=== PATIENT | female | born 1945 | race Caucasian/White ===

== ENCOUNTER 2018-02-27 11:15 | Emergency (ER) | payer OTHER ==
[~2018-02-27] VITALS: Ht 165.1 cm; Wt 72.6 kg
[~2018-02-27 11:15] MED LIST: PROAIR HFA8.5 GM IH; TUSSIONEX PENNKI5 ML PO; ZITHROMAX500 MG PO
[2018-02-27] MEDS ORDERED: RITALIN20 MG (11:33)
== END 2018-02-27 19:49 | disposition home or self-care (01) ==
LOC: ER 11:15
DX: K57.30 Diverticulosis of large intestine without perforation or abscess without bleeding (principal)

== ENCOUNTER 2018-03-20 16:59 | Emergency (ER) | payer OTHER ==
[~2018-03-20] VITALS: Ht 157.5 cm; Wt 70.3 kg
[~2018-03-20 16:59] MED LIST changes: +RITALIN20 MG
[2018-03-20] MEDS ORDERED: DIAZEPAM10 MG PO (19:28)
[2018-03-20] MEDS ORDERED: SKELAXIN800 MG PO (19:28)
== END 2018-03-20 20:07 | disposition home or self-care (01) ==
LOC: ER 16:59
DX: M54.89 Other dorsalgia (principal)

== ENCOUNTER 2018-03-30 18:23 | Outpatient (CLI) | payer OTHER ==
[~2018-03-30 18:23] MED LIST changes: +DIAZEPAM10 MG PO; +SKELAXIN800 MG PO
== END 2018-03-30 22:00 | disposition home or self-care (01) ==
LOC: RAD 18:23
DX: M47.896 Other spondylosis, lumbar region (principal)

== ENCOUNTER 2019-07-30 14:11 | Emergency (ER) | payer OTHER ==
[~2019-07-30] VITALS: Ht 157.5 cm; Wt 74.8 kg
[2019-07-30] MEDS ORDERED: RITALIN20 MG PO ×2 (14:28→14:29)
[2019-07-30] MEDS ORDERED: LIALDA1.2 GM PO (14:29)
[2019-07-30] MEDS ORDERED: ZYRTEC10 M3 PO (14:30)
[2019-07-30] MEDS ORDERED: PROAIR HFA8.5 GM IH ×2 (14:30→16:14)
== END 2019-07-30 16:17 | disposition home or self-care (01) ==
LOC: ER 14:11
DX: R05 Cough (principal)

== ENCOUNTER 2020-10-17 00:10 | Inpatient (IN) | payer OTHER ==
[~2020-10-17] VITALS: Ht 160 cm; Wt 73.5 kg
[~2020-10-17 00:10] MED LIST changes: +LIALDA1.2 GM PO; +RITALIN20 MG PO; +ZYRTEC10 M3 PO
[2020-10-17] MEDS ORDERED: VOLTAREN 50 MG (00:39)
[2020-10-17] MEDS ORDERED: DICLOFENAC SODI50 MG (16:22)
== END 2020-10-24 20:26 | disposition expired | DRG 64 ==
LOC: ER 00:10 → SEC-K 11:32 → MEDJ 11:32 → MEDI 10-20 22:12 → ICU 10-21 03:52
PROVIDERS: ADMIT Internal Medicine; ATTEND Internal Medicine
PROC: BW38ZZZ Magnetic Resonance Imaging (MRI) of Head (ICD-10-PCS; 2020-10-17)
PROC: B33RZZZ Magnetic Resonance Imaging (MRI) of Intracranial Arteries (ICD-10-PCS; 2020-10-17)
PROC: 4A12X4Z Monitoring of Cardiac Electrical Activity, External Approach (ICD-10-PCS; principal; 2020-10-19)
PROC: 0BH17EZ Insertion of Endotracheal Airway into Trachea, Via Natural or Artificial Opening (ICD-10-PCS; 2020-10-19)
PROC: 5A1955Z Respiratory Ventilation, Greater than 96 Consecutive Hours (ICD-10-PCS; 2020-10-19)
PROC: 4A033R1 Measurement of Arterial Saturation, Peripheral, Percutaneous Approach (ICD-10-PCS; 2020-10-19)
PROC: BW28ZZZ Computerized Tomography (CT Scan) of Head (ICD-10-PCS; 2020-10-19)
PROC: 02HV33Z Insertion of Infusion Device into Superior Vena Cava, Percutaneous Approach (ICD-10-PCS; 2020-10-21)
PROC: BW20ZZZ Computerized Tomography (CT Scan) of Abdomen (ICD-10-PCS; 2020-10-22)
PROC: BW21ZZZ Computerized Tomography (CT Scan) of Abdomen and Pelvis (ICD-10-PCS; 2020-10-22)
PROC: BW28ZZZ Computerized Tomography (CT Scan) of Head (ICD-10-PCS; 2020-10-22)
DX: I60.8 Other nontraumatic subarachnoid hemorrhage (principal); J96.00 Acute respiratory failure, unspecified whether with hypoxia or hypercapnia; G93.6 Cerebral edema; G91.1 Obstructive hydrocephalus; E87.1 Hypo-osmolality and hyponatremia; E87.3 Alkalosis; D18.02 Hemangioma of intracranial structures; G44.53 Primary thunderclap headache; Z20.822 Contact with and (suspected) exposure to COVID-19
CPT/HCPCS: 70544